=== PATIENT | male | born 1995 | race Caucasian/White ===

== ENCOUNTER 2017-02-10 13:26 | Emergency (ER) | payer SELFPAY ==
[~2017-02-10 13:26] MED LIST: BIAXIN PO; CLARITHROMYCIN500 MG PO; FLAGYL250 M1 PO; KLONOPIN PO; PHENERGAN25 MG PO; PRILOSEC20 M1 PO; PRILOSEC20 MG PO
[2017-02-10 14:55] LABS: INFLUENZA A NEG (NEG); INFLUENZA B NEG (NEG)
== END 2017-02-10 15:24 | disposition home or self-care (01) ==
LOC: SED 13:26
PROVIDERS: Physician Assistant
DX: J20.9 Acute bronchitis, unspecified (principal); F17.210 Nicotine dependence, cigarettes, uncomplicated; Z88.1 Allergy status to other antibiotic agents
CPT/HCPCS: 87651; 87804; 99283